=== PATIENT | female | born 1995 | race Caucasian/White ===

== ENCOUNTER 2019-03-25 00:34 | Inpatient (IN) | payer SELFPAY ==
[~2019-03-25] VITALS: Ht 165.1 cm; Wt 74.1 kg
[2019-03-25] MEDS ORDERED: LR 1,000 ML IV SCH (00:50)
[2019-03-25] MEDS ORDERED: LACTATED RINGER'S 1000 ML IV STA (00:50)
[2019-03-25] MEDS ORDERED: PENICILLIN G POTASSIUM IV 5 MU in D5W MINI-BAG PLUS 100 ML IV STA (00:50)
--- NOTE | 2019-03-25 00:58 | NUR ---
L&D H&P HPI: 23 year old at 40+5 weeks estimated gestation. Expected date of confinement: 03/20/19. dated by LMP. Presents today complaining of painful,frequent uterine contractions over the past several hours. Has had some bloody show. Denies heavy vaginal bleeding, loss of fluid, or uterine contractions. Reports regular movement. course uncomplicated thus far. Pt is Zoroastrian and has had scant care. labs: none History Past medical history:none Surgical history: none Medications:PNV Allergies:NKDA CONTINUOUS IMPROVEMENT FACILITATOR history:none OB history: G1 Social history:Zoroastrian Family history: none reported Objective Vitals: Normotensive, normal heart rate, afebrile Heart: Regular rate and rhythm. No murmurs, rubs or gallops. Lungs: Clear to auscultation bilaterally. No wheezes, crackles, rales or rhonchi. Abdomen: Uterine fundal height consistent with dates. No guarding or rebound tenderness. Extremities: No clubbing, cyanosis or edema. Normal deep tendon reflexes. Sterile vaginal exam: 7 cm, 100 %effacement, 0 station, cephalic, intact External monitoring: heart rate category 1 Tocodynamometer: contractions occurring every 2-3 minutes Assessment/Plan 23 year old at 40+5 weeks gestation. Diagnosis: active labor at term. Reassuring and maternal status. -Admit to labor and delivery with routine labs and orders -External monitoring and tocodynamometer -Pediatrics and anesthesia consultations as needed. -GBS prophylaxis with IV penicillin -Augment labor with Pitocin as needed Dr. Attila Garay, DO, FACOG
[2019-03-25 01:30] LABS: HEMATOCRIT 35.4 % (36.0-47.0); HEMOGLOBIN 12.1 g/dl (12.0-15.5); MEAN CORPUSCULAR HEMOGLOBIN 30.6 pg (27.0-33.0); MEAN CORPUSCULAR HGB CONC 34.2 g/dl (32.0-36.5); MEAN CORPUSCULAR VOLUME 89.4 fl (80.0-96.0); PLATELET COUNT, AUTOMATED 208 10^3/uL (150-450); RED BLOOD COUNT 3.96 10^6/uL (4.00-5.40); WHITE BLOOD COUNT 16.6 10^3/uL (4.0-10.0)
[2019-03-25] MEDS ORDERED: OXYTOCIN 30 UNITS IN 0.9% NaCl 500ML IV BAG (J2590) As Ordered ONE (02:15)
--- NOTE | 2019-03-25 02:21 | NUR ---
Progress Note Patient having rectovaginal pressure. VSS,af SVE: 9/C/0; AROM clear EFM: Cat I [place]: ctxs every 2-3 min A/P: Active labor, approaching the second stage. Reassuring maternal and status. Lety Garay DO
[2019-03-25] MEDS ORDERED: OXYTOCIN DRIP 30 UNITS in APPROPRIATE DILUENT 1 EA IV SCH (03:21)
[2019-03-25] MEDS: LR 1,000 ML IV SCH ×3 (03:21→19:21)
--- NOTE | 2019-03-25 03:25 | NUR ---
Delivery note Spontaneous vaginal delivery Estimated gestational age at delivery: 40+5 weeks The active phase and second stage of labor progressed in normal fashion without epidural anesthesia. Patient did not receive Pitocin labor augmentation. The head delivered left occiput anterior and restituted left occiput transverse. No nuchal cord was noted. The anterior shoulder delivered with gentle downward guidance and the remainder of the body delivered with ease. Cord clamping was delayed for approximately 1 minute after delivery. After doubly clamping the cord, I had the patient's mother cut the cord. The was placed on the patient's chest for immediate bonding. data: Apgars 8 and 9. weight 4030 grams 8 pounds, 14 ounces. Time of delivery: 0303. Sex: Male. The third stage of labor was actively managed with a bolus of IV Pitocin (30 units in 500 mL of normal saline). The placenta delivered completely intact with no missing cotyledons at 0307. A three-vessel cord with a central insertion was noted. After delivery of the placenta, the uterine fundus was approximately 2 cm below the umbilicus and firm. IV Pitocin was continued to maintain uterine tone. A normal, low level of uterine bleeding was noted. The cervix, vagina, vulva and perineum were inspected for lacerations. A first degree laceration was noted. This was repaired with 3-0 Vicryl in typical fashio n. Excellent hemostasis was noted. Estimated blood loss: 200ml. All sponges, needles, and instruments were accounted for per INVESTIGATIVE RESEARCH SPECIALIST department protocol. Attila Garay D.O., F.A.C.O.G.
[2019-03-25] MEDS ORDERED: PROMETHAZINE 25 MG TAB PO PRN (03:30)
[2019-03-25] MEDS ORDERED: ACETAMINOPHEN TAB 650MG DOSE (2X325MG) PO PRN (03:30)
[2019-03-25] MEDS ORDERED: ONDANSETRON 4MG/2ML VIAL (J2405) IV PRN (03:30)
[2019-03-25] MEDS ORDERED: MEASLES,MUMPS,RUBELLA VACCINE INJ (MMR-II) (90707) SC SCH (03:30)
[2019-03-25] MEDS ORDERED: DOCUSATE SODIUM 100 MG CAP PO PRN (03:30)
[2019-03-25] MEDS ORDERED: RHOGAM 300 MCG (1500 IU) INJ (J2790) IM SCH (03:30)
[2019-03-25] MEDS ORDERED: IBUPROFEN 600 MG TAB PO PRN (03:30)
[2019-03-25] MEDS ORDERED: ACETAMINOPHEN 500 MG TAB PO PRN (03:30)
[2019-03-25] MEDS ORDERED: DIBUCAINE 1% OINTMENT 30GM TOP PRN (03:30)
[2019-03-25] MEDS ORDERED: PENICILLIN G POTASSIUM IV 2.5 MU in APPROPRIATE DILUENT 1 EA IV SCH (05:15)
[2019-03-25 06:44] VITALS: BP 120/78
[2019-03-25] MEDS: PRENATAL VITAMINS CHEWABLE TABLET PO SCH (07:52)
[2019-03-25] MEDS: IBUPROFEN 800 MG TAB PO PRN ×2 (07:52→21:10)
[2019-03-25 10:56] LABS: HIV 1&2 SCREEN CENTAUR NEGATIVE (NEGATIVE)
[2019-03-25] MEDS ORDERED: LIDOCAINE 1% MDV INJ 50 ML VIAL As Ordered ONE (13:21)
[2019-03-25 18:00] VITALS: BP 110/60
[2019-03-26 06:39] VITALS: BP 108/60
[2019-03-26] MEDS: PRENATAL VITAMINS CHEWABLE TABLET PO SCH (10:49)
== END 2019-03-26 13:45 | disposition home or self-care (01) | DRG 560 ==
LOC: M LDI 00:34 → M OBS 06:24
PROVIDERS: ADMIT Obstetrics & Gynecology; ATTEND Obstetrics & Gynecology
PROC: 10E0XZZ Delivery of Products of Conception, External Approach (ICD-10-PCS; principal; 2019-03-25)
PROC: 0HQ9XZZ Repair Perineum Skin, External Approach (ICD-10-PCS; 2019-03-25)
DX: O48.0 Post-term pregnancy (principal); O70.0 First degree perineal laceration during delivery; Z37.0 Single live birth; Z3A.40 40 weeks gestation of pregnancy